=== PATIENT | male | born 1995 | race African-American/Black ===

== ENCOUNTER 2019-02-04 10:50 | Emergency (ER) | payer OTHER, BC ==
[2019-02-04 11:05] VITALS: BP 107/63; PULSE 97; TEMP 98.1; BMI 39.0
[2019-02-04] MEDS ORDERED: IBUPROFEN 600 MG TABLET (FP) PO ONE (11:18)
--- NOTE | 2019-02-04 11:18 | PDOC ---
History of Present Illness - General Chief Complaint: Pain, Acute Stated Complaint: LT JOINT PAIN Time Seen by Provider: 02/04/19 11:06 - History of Present Illness Initial Comments: 02/04/19 11:18 CHIEF COMPLAINT: left knee pain HISTORY OF PRESENT ILLNESS: 23 yo M with no significant PMH presents to [facility] with left knee pain s/p fall. 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 PAST MEDICAL HISTORY: Denies past medical history FAMILY HISTORY: Denies SOCIAL HISTORY: Denies tobacco, alcohol, illicit drug use. SURGICAL HISTORY: Denies ALLERGIES: pollen extract REVIEW OF SYSTEMS General/Constitutional: Denies fever or chills. Denies weakness, weight change. HEENT: Denies change in vision. Denies ear pain or discharge. Denies sore throat. Cardiovascular: Denies chest pain or shortness of breath. Respiratory: Denies cough, wheezing, or hemoptysis. Gastrointestinal: Denies nausea, vomiting, diarrhea or constipation. Denies rectal bleeding. Genitourinary: Denies dysuria, frequency, or change in urination. Musculoskeletal: Left knee pain. Skin and breasts: Denies rash or easy bruising. Neurologic: Denies headache, vertigo, loss of consciousness, or loss of sensation. PHYSICAL EXAM General Appearance: Obses, appropriately dressed. No apparent distress, no intoxication. HEENT: EOMI, PERRLA, normal ENT inspection, normal voice, TMs normal, pharynx normal. No conjunctival pallor. No photophobia, scleral icterus. Neck: Supple. Trachea midline. No tenderness, rigidity, carotid bruit, stridor , lymphadenopathy, or thyromegaly. Respiratory/Chest: Lungs CTAB. No shortness of breath, chest tenderness, respiratory distress, accessory muscle use. No crackles, rales, rhonchi, stridor , wheezing, dullness Cardiovascular: RRR. S1, S2. No JVD, murmur, bradycardia, tachycardia. Vascular Pulses: Dorsalis-Pedis (R): 2+, Dorsalis-Pedis (L): 2+ Gastrointestinal/Abdominal: Normal bowel sounds. Abdomen soft, non-distended. No tenderness or rebound tenderness. No organomegaly, pulsatile mass, guarding , hernia, hepatomegaly, splenomegaly. Lymphatic: No adenopathy, tenderness. Musculoskeletal/Extremities: Tenderness to medial L knee on palpation. Full flexion/extension of knee, patient fully ambulatory. Normal inspection. FROM of all extremities, normal capillary refill. Pelvis Stable. No CVA tenderness. No tenderness to extremities, pedal edema, swelling, erythema or deformity. Integumentary: Appropriate color, dry, warm. 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 Fully oriented, alert. Appropriate mood/affect. Motor strength 5/5. No appreciable EOM palsy, facial droop or sensory deficit. 02/04/19 11:18 Past History - Past Medical History Allergies/Adverse Reactions: Allergies Allergy/AdvReac Type Severity Reaction Status Date / Time pollen extracts Allergy Verified 02/04/19 11:03 Home Medications: Ambulatory Orders Ibuprofen [Motrin -] 600 mg PO TID #21 tablet 02/04/19 COPD: No - Suicide/Smoking/Psychosocial Hx Smoking History: Never smoked *Physical Exam - Vital Signs Last Vital Signs Temp Pulse Resp BP Pulse Ox 98.1 F 97 H 20 107/63 99 02/04/19 11:03 02/04/19 11:03 02/04/19 11:03 02/04/19 11:03 02/04/19 11:03 ED Treatment Course - RADIOLOGY Radiology Studies Ordered: Category Date Time Status KNEE 3 POS-LEFT [RAD] Stat Radiology 02/04/19 11:16 Ordered Medical Decision Making - Medical Decision Making 02/04/19 11:23 : 23 yo M with no significant PMH presents to [facility] with left knee pain s/ p fall. -knee xray -motrin -knee immobilizer *DC/Admit/Observation/Transfer Diagnosis at time of Disposition: Left knee sprain Qualifiers: Encounter type: initial encounter Involved ligament of knee: unspecified ligament Qualified Code(s): S83.92XA - Sprain of unspecified site of left knee, initial encounter - Discharge Dispostion Disposition: HOME Condition at time of disposition: Stable Decision to Admit order: No - Prescriptions Prescriptions: Ibuprofen [Motrin -] 600 mg PO TID #21 tablet - Referrals Referrals: Ernie Giles DO [Staff Physician] - - Patient Instructions Printed Discharge Instructions: DI for Knee Sprain - Post Discharge Activity Forms/Work/School Notes: Back to Work
[2019-02-04] MEDS ORDERED: IBUPROFEN 400 MG TABLET (FP) PO ONE (11:23)
== END 2019-02-04 13:11 | disposition home or self-care (01) ==
LOC: JERFT 10:50
PROC: 2W3RX1Z Immobilization of Left Lower Leg using Splint (ICD-10-PCS; principal; 2019-02-04)
DX: S83.92XA Sprain of unspecified site of left knee, initial encounter (principal); Y93.39 Activity, other involving climbing, rappelling and jumping off; Y92.9 Unspecified place or not applicable; Y99.0 Civilian activity done for income or pay
CPT/HCPCS: 73562-TC-LT-FY; 99281-25